=== PATIENT | male | born 1970 | race Hispanic/Latino ===

== ENCOUNTER 2020-03-08 11:02 | Emergency (ER) | payer SELFPAY ==
[2020-03-08] MEDS ORDERED: NA CHLORIDE 0.9% 250 ML ONE (11:21)
[2020-03-08] MEDS ORDERED: CROTALIDAE ANTIVENIM 1 GM VIAL IV ONE (11:21)
[2020-03-08] MEDS ORDERED: NA CHLORIDE 0.9% 1,000 ML ONE (11:33)
[2020-03-08] MEDS ORDERED: ONDANSETRON 4 MG/2 ML VIAL ONE (11:33)
[2020-03-08] MEDS ORDERED: MORPHINE 4 MG/ML SYR ONE (11:33)
[2020-03-08] MEDS ORDERED: TETANUS & DIPHTHERIA TOX,ADULT 0.5 ML VIAL ONE (11:33)
[2020-03-08] MEDS ORDERED: CEFAZOLIN/SWI 1gm 1 GM/10 ML SYR ONE (11:34)
--- NOTE | 2020-03-08 11:37 | EDPHYS ---
Physician Documentation [facility] Name: Nayan Alejandro Age: 49 yrs Sex: Male : 1970 Arrival Date: 03/08/2020 Time: 11:03 Bed 4 Private MD: ED Physician Bradford Escobar HPI: 03/08 11:18 This 49 yrs old Male presents to ER via Ambulatory with complaints of Snake scottie bite. 11:18 The patient was bitten on the lateral aspect of left hand, lateral aspect of left scottie fingers and dorsal aspect of proximal phalanx of left index finger. Onset: The symptoms/episode began/occurred just prior to arrival, 10 minute(s) ago. Animal information: The snake had the markings of a copperhead snake. Secondary to the bite the patient reports erythema, pain, multiple puncture wounds, that are deep, swelling. Associated signs and symptoms: Pertinent positives: erythema at site, pain at site, swelling at site, tenderness. Severity of symptoms: At their worst the symptoms were moderate, in the emergency department the symptoms are unchanged. The patient has not experienced similar symptoms in the past. Historical: - Allergies: 11:13 No Known Allergies; ss - Home Meds: 11:13 None [Active]; ss - PMHx: 11:13 None; ss - PSHx: 11:13 None; ss - Immunization history:: Adult Immunizations up to date. - Social history:: Smoking status: Patient denies any tobacco usage or history of. - Family history:: not pertinent. ROS: 11:18 Constitutional: Negative for fever, chills, and weight loss, Eyes: Negative for injury, scottie pain, redness, and discharge, ENT: Negative for injury, pain, and discharge, Neck: Negative for injury, pain, and swelling, Cardiovascular: Negative for chest pain, palpitations, and edema, Respiratory: Negative for shortness of breath, cough, wheezing, and pleuritic chest pain, Abdomen/GI: Negative for abdominal pain, nausea, vomiting, diarrhea, and constipation, Back: Negative for injury and pain, : Negative for injury, bleeding, discharge, and swelling, Skin: Negative for injury, rash, and discoloration, Neuro: Negative for headache, weakness, numbness, tingling, and seizure, Psych: Negative for depression, anxiety, suicide ideation, homicidal ideation, and hallucinations, Allergy/Immunology: Negative for hives, rash, and allergies, Endocrine: Negative for neck swelling, polydipsia, polyuria, polyphagia, and marked weight changes, Hematologic/Lymphatic: Negative for swollen nodes, abnormal bleeding, and unusual bruising. 11:18 MS/extremity: Positive for injury or acute deformity, bite, decreased range of motion, ecchymosis, pain, swelling, tenderness, of the lateral aspect of left hand and lateral aspect of left fingers. Exam: 11:18 Constitutional: This is a well developed, well nourished patient who is awake, alert, scottie and in no acute distress. Head/Face: Normocephalic, atraumatic. Eyes: Pupils equal round and reactive to light, extra-ocular motions intact. Lids and lashes normal. Conjunctiva and sclera are non-icteric and not injected. Cornea within normal limits. Periorbital areas with no swelling, redness, or edema. ENT: Nares patent. No nasal discharge, no septal abnormalities noted. Tympanic membranes are normal and external auditory canals are clear. Oropharynx with no redness, swelling, or masses, exudates, or evidence of obstruction, uvula midline. Mucous membranes moist. Neck: Trachea midline, no thyromegaly or masses palpated, and no cervical lymphadenopathy. Supple, full range of motion without nuchal rigidity, or vertebral point tenderness. No Meningismus. Chest/axilla: Normal chest wall appearance and motion. Nontender with no deformity. No lesions are appreciated. Cardiovascular: Regular rate and rhythm with a normal S1 and S2. No gallops, murmurs, or rubs. Normal PMI, no JVD. No pulse deficits. Respiratory: Lungs have equal breath sounds bilaterally, clear to auscultation and percussion. No rales, rhonchi or wheezes noted. No increased work of breathing, no retractions or nasal flaring. Abdomen/GI: Soft, non-tender, with normal bowel sounds. No distension or tympany. No guarding or rebound. No evidence of tenderness throughout. Back: No spinal tenderness. No costovertebral tenderness. Full range of motion. Male : Normal genitalia with no discharge or lesions. Neuro: Awake and alert, GCS 15, oriented to person, place, time, and situation. Cranial nerves II-XII grossly intact. Motor strength 5/5 in all extremities. Sensory grossly intact. Cerebellar exam normal. Normal gait. Psych: Awake, alert, with orientation to person, place and time. Behavior, mood, and affect are within normal limits. 11:18 Musculoskeletal/extremity: ROM: limited active range of motion, limited passive range of motion, Pulses: are normal with no appreciated deficits, Severe pain noted. Compartment Syndrome exam of affected extremity: is normal. Joints: the MCP of left index finger displays pain at rest, painful range of motion, swelling, tenderness. 11:18 Skin: Appearance: Temperature: normal temperature, Moisture: normal moisture, petechiae, not noted, ecchymosis, swelling, noted on the lateral aspect of left hand, lateral aspect of left fingers, palmar aspect of proximal phalanx of left index finger and Left first web space. Vital Signs: 11:10 BP 129 / 86; Pulse 87; Resp 16; Temp 97.5(TE); Pulse Ox 100% on R/A; Weight 84.37 kg; ss Pain 10/10; 12:10 Pain 5/10; sv 12:15 BP 114 / 92; Pulse 61; Resp 12; Pulse Ox 100% ; sv MDM: 11:04 Patient medically screened. [facility] 11:23 Differential diagnosis: superficial laceration, tendon injury, vascular injury, scottie cellulitis. Rabies Status: Rabies immunization is not indicated. Data reviewed: vital signs, nurses notes, lab test result(s), radiologic studies, plain films. Data interpreted: residential monitor: rate is 87 beats/min, rhythm is regular, Pulse oximetry: on room air is 100 %. Test interpretation: by ED physician or midlevel provider: plain radiologic studies. Counseling: I had a detailed discussion with the patient and/or guardian regarding: the historical points, exam findings, and any diagnostic results supporting the discharge/admit diagnosis, lab results, radiology results, the need to transfer to another facility, for higher level of care, [facility] does not immediately have the required specialist. 11:37 Consent for treatment: Risk, benefits, and alternatives discussed with Pt/guardian scottie concerning: no extra crofab and no hand surgeon. 03/08 11:09 Order name: CBC with Diff; Complete Time: 12:22 [facility] 03/08 11:09 Order name: Comprehensive Metabolic Panel; Complete Time: 12:22 scottie 03/08 11:09 Order name: Hand Left 3 View XRAY [facility] 03/08 11:09 Order name: PT-INR; Complete Time: 12:22 [facility] 03/08 11:09 Order name: Ptt, Activated; Complete Time: 12:22 [facility] 03/08 11:09 Order name: Fibrinogen; Complete Time: 12:22 [facility] Administered Medications: 11:30 Drug: NS 0.9% 1000 ml Route: IV; Rate: 1 bolus; Site: right forearm; hb 12:31 Follow up: Response: No adverse reaction; IV Status: Completed infusion; IV Intake: sv 1000ml 11:30 Drug: Ancef 1 grams Route: IVPB; Site: right forearm; hb 11:32 Follow up: Response: No adverse reaction; IV Status: Completed infusion; IV Intake: 10mlsv 11:30 Drug: Zofran (Ondansetron) 4 mg Route: IVP; Site: right forearm; hb 12:10 Follow up: Response: No adverse reaction sv 11:31 Drug: Tetanus-Diphtheria Toxoid Adult 0.5 ml {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 Exp: hb 09/13/2022. Lot #: [id number]. } Route: IM; Site: right deltoid; 12:11 Follow up: Response: No adverse reaction sv 11:31 Drug: morphine 4 mg Route: IVP; Site: right forearm; hb 12:10 Follow up: Pain 5/10 Adult; Response: No adverse reaction; Pain is decreased; RASS: sv Alert and Calm (0) 11:45 Drug: CroFab 5 vials Route: IV; Rate: per protocol; Site: right forearm; sv 12:31 Follow up: Response: No adverse reaction; IV Status: Infusion continued upon transfer sv Disposition: 03/08/20 11:37 Transfer ordered to [facility]. Diagnosis is Toxic effect of snake venom - copperhead envenomation. - Reason for transfer: Higher level of care. - Accepting physician is dr stanford. - Condition is Stable. - Problem is new. - Symptoms have improved. Signatures: Dispatcher [employer] Zhane Lazo RN RN sv Anderson, Corey, MD MD cha Smirch, Shelby, RN RN ss Baxter, Heather, RN RN Corrections: (The following items were deleted from the chart) 12:31 11:37 03/08/2020 11:37 Transfer ordered to [facility]. Diagnosis is Toxic sv effect of snake venom - copperhead envenomation. Reason for transfer: Higher level of care. Accepting physician is dr stanford. Condition is Stable. Problem is new. Symptoms have improved. scottie
--- NOTE | 2020-03-08 11:37 | ER ---
Nurse's Notes [facility] Name: Nayan Alejandro Age: 49 yrs Sex: Male : 1970 Arrival Date: 03/08/2020 Time: 11:03 Bed 4 Private MD: Diagnosis: Toxic effect of snake venom-copperhead envenomation Presentation: 03/08 11:10 Chief complaint: Patient states: snake bite to base of L index finger that occurred 10 ss minutes ago. Positive ID as a copperhead. Swelling and bruising noted. Coronavirus screen: Client denies travel out of the [place] in the last 14 days. At this time, the client does not indicate any symptoms associated with coronavirus-19. Ebola Screen: Patient denies exposure to infectious person. Patient denies travel to an Ebola-affected area in the 21 days before illness onset. Initial Sepsis Screen: Does the patient meet any 2 criteria? No. Patient's initial sepsis screen is negative. Does the patient have a suspected source of infection? No. Patient's initial sepsis screen is negative. Risk Assessment: Do you want to hurt yourself or someone else? Patient reports no desire to harm self or others. Onset of symptoms was March 08, 2020. 11:10 Method Of Arrival: Ambulatory ss 11:10 Acuity: MICHI 1 ss Triage Assessment: 11:10 Bite description: bite sustained to left hand was sustained less than 30 minutes ago. sv by a snake, animal information: vaccination(s) is not applicable. Historical: - Allergies: 11:13 No Known Allergies; ss - Home Meds: 11:13 None [Active]; ss - PMHx: 11:13 None; ss - PSHx: 11:13 None; ss - Immunization history:: Adult Immunizations up to date. - Social history:: Smoking status: Patient denies any tobacco usage or history of. - Family history:: not pertinent. Screenin:04 Abuse screen: Denies threats or abuse. Denies injuries from another. Nutritional sv screening: No deficits noted. Tuberculosis screening: No symptoms or risk factors identified. Fall Risk None identified. Assessment: 11:10 General: Appears in no apparent distress. uncomfortable, well groomed, well developed, sv Behavior is calm, cooperative, appropriate for age. Pain: Complains of pain in left hand Pain currently is 10 out of 10 on a pain scale. 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 Neuro: Level of Consciousness is awake, alert, obeys commands, Oriented to person, place, time, situation, Moves all extremities. Full function. Respiratory: Airway is patent Respiratory effort is even, unlabored, Respiratory pattern is regular, symmetrical. Derm: Skin is intact, Skin is pink, warm \T\ dry. Musculoskeletal: Swelling present in left index finger, left middle finger, dorsum of left hand, left thumb and Left first web space. Injury Description: Bite sustained to dorsal aspect of proximal phalanx of left index finger caused by a snake, was sustained less than 30 minutes ago. 11:10 Reassessment: Swelling marked off and timed. sv 11:45 Reassessment: Swelling has increased up to the middle of the left forearm, area marked sv and timed. 12:30 Reassessment: Report given to Keenan from EMS. sv 12:30 Reassessment: Patient appears in no apparent distress at this time. Patient and/or sv family updated on plan of care and expected duration. Pain level reassessed. Patient is alert, oriented x 3, equal unlabored respirations, skin warm/dry/pink. Vital Signs: 11:10 BP 129 / 86; Pulse 87; Resp 16; Temp 97.5(TE); Pulse Ox 100% on R/A; Weight 84.37 kg; ss Pain 10/10; 12:10 Pain 5/10; sv 12:15 BP 114 / 92; Pulse 61; Resp 12; Pulse Ox 100% ; sv ED Course: 11:03 Patient arrived in ED. ss 11:04 Bradford Escobar MD is Attending Physician. scottie 11:10 Patient has correct armband on for positive identification. Bed in low position. Call light in reach. construction job cost estimator on. Pulse ox on. NIBP on. Door closed. Head of bed elevated. 11:13 Triage completed. ss 11:13 Arm band placed on left wrist. ss 11:15 Inserted saline lock: 20 gauge in right forearm, using aseptic technique. ,using sv aseptic technique. done by Sarah GARG Blood collected. 11:20 Zhane Karimi RN is Primary Nurse. sv 11:[address] Escobar with Nydia Huggins from the [facility]. 11:[address] Joseline Daniels the emergency room doctor primary montessori teacher for [facility] with Dr. Escobar for patient transfer consultation. 11:33 administrative approval given by Nydia Huggins/ patient has been accepted to [facility] ER/ Dr. Villa has accepted the patient in transfer/ report to be called to [phone]. 11:35 Hand Left 3 View XRAY In Process Unspecified. EDMS 12:00 IV is patent, is intact, with fluids infusing freely. sv 12:03 No provider procedures requiring assistance completed. Patient transferred, IV remains sv in place. intact. 12:12 transfer transportation to receiving facility. 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 Exp: 09/13/2022. Lot #: [id number]. } Route: IM; Site: right deltoid; 12:11 Follow up: Response: No adverse reaction sv 11:31 Drug: morphine 4 mg Route: IVP; Site: right forearm; hb 12:10 Follow up: Pain 5/10 Adult; Response: No adverse reaction; Pain is decreased; RASS: sv Alert and Calm (0) 11:45 Drug: CroFab 5 vials Route: IV; Rate: per protocol; Site: right forearm; sv 12:31 Follow up: Response: No adverse reaction; IV Status: Infusion continued upon transfer sv Intake: 11:32 IV: 10ml; Total: 10ml. sv 12:31 IV: 1000ml; Total: 1010ml. sv Outcome: 11:37 ER care complete, transfer ordered by MD. rubin 12:03 Transferred by ground EMS to [facility], Transfer form completed. Note: sv Report called to Damien GARG 12:03 Condition: stable 12:03 Instructed on the need for transfer. 12:31 Patient left the ED. sv Signatures: Dispatcher [employer] Zhane Lazo RN RN sv Anderson, Corey, MD MD cha Smirch, Shelby, RN RN ss Baxter, Heather, RN RN hb Botello, Elizabeth eb Corrections: (The following items were deleted from the chart) 12:10 11:10 Injury Description: Bite sustained to dorsal aspect of proximal phalanx of left sv index finger caused by a snake, was sustained less than 30 minutes ago. sv
[2020-03-08 11:41] LABS: Absolute Lymphocytes (CBC) 1.6 K/uL (0.7-4.9); Basophils % 0.8 % (0-1.3); Hematocrit 42.6 % (39.6-49.0); Lymphocytes % 31.7 % (15.3-44.8); MPV 9.1 fL (7.6-11.3); RBC Red Blood Cell Count 4.78 M/uL (4.33-5.43)
[2020-03-08 11:59] LABS: Albumin 4.3 g/dL (3.4-5.0); Bilirubin Total 0.6 mg/dL (0.2-1.0); Potassium 3.8 mmol/L (3.5-5.1); Protein, Total 8.4 g/dL (6.4-8.2)
[2020-03-08 12:37] VITALS: TEMP 97.5; O2SAT 100
--- NOTE | 2020-03-08 12:38 | RAD REPORT ---
EXAM DESCRIPTION: RAD - Hand Left 3 View - 03/08/2020 11:34 am CLINICAL HISTORY: PAIN COMPARISON: No comparisons FINDINGS: Significant soft tissue swelling is seen the posterior aspect of the hand. No fracture or dislocation seen. No radiopaque foreign body.
[2020-03-08 12:39] VITALS: BP 114/92
== END 2020-03-08 12:31 | disposition short-term general hospital (02) ==
LOC: ER 11:02
DX: T63.091A Toxic effect of venom of other snake, accidental (unintentional), initial encounter (principal); S61.432A Puncture wound without foreign body of left hand, initial encounter; Z23 Encounter for immunization
CPT/HCPCS: 36415; 80053; 85025; 85384; 85610; 85730; 90471; 90714; 96365; 96375; 99285; J0690; J0840; J2405; J7030; J7050